=== PATIENT | male | born 1950 | race Caucasian/White ===

== ENCOUNTER 2017-02-22 07:10 | Emergency (ER) | payer MEDICARE, BC ==
[2017-02-22] MEDS ORDERED: Ondansetron ODT TAB* 4 MG PO ONE (07:25)
--- NOTE | 2017-02-22 08:19 | UC ---
Abdominal Pain Male HPI - HPI Summary HPI Summary: onset yesterday morning at 4 am of diarrhea stools, associated with abdominal discomfort and dry heaves. Had diarrhea stools off and on through the day--non-bloody, no mucous, but was up and around. Last night had onset of chills and whole body ache, with upper abdominal discomfort. Has voided with most stool passage, with about 12 episodes of loose water stools in the past 24 hours. Colonoscopy last year was normal. Hx of reflux x years, currently takes PPI irregularly. 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 - here with his Onset/Duration: Sudden Onset, Lasting Hours - 24 - Allergies/Home Medications Allergies/Adverse Reactions: Allergies Allergy/AdvReac Type Severity Reaction Status Date / Time No Known Allergies Allergy Verified 02/22/17 07:15 Home Medications: Home Medications Allopurinol TAB* [Zyloprim 100 MG TAB*] 100 mg PO DAILY 02/22/17 [History Confirmed 02/22/17] Lansoprazole [Prevacid] 30 mg PO DAILY 02/22/17 [History Confirmed 02/22/17] Loratadine 10 mg PO DAILY 02/22/17 [History Confirmed 02/22/17] Potassium Citrate (Alkalinizer [Potassium Citrate] 1 gra XX DAILY 02/22/17 [ History Confirmed 02/22/17] Tamsulosin HCl [Flomax] 0.4 mg PO DAILY 02/22/17 [History Confirmed 02/22/17] PMH/Surg Hx/FS Hx/Imm Hx - Additional Past Medical History Additional PMH: chronic back pain GI/ History: Gastroesophageal Reflux, Other - BPH Other GI/ History: BPH - Surgical History Surgical History: None - Family History Known Family History: Positive: Hypertension - Social History Occupation: Retired Lives: With Family Alcohol Use: Occasionally Substance Use Type: None Smoking Status (MU): Never Smoked Tobacco Review of Systems Constitutional: Fever, Fatigue Skin: Negative Eyes: Negative ENT: Negative Respiratory: Negative Cardiovascular: Negative Gastrointestinal: Negative Genitourinary: Negative Motor: Negative Neurovascular: Negative Musculoskeletal: Other: - chronic episodic back pain, chiropractic treatment regularly. Neurological: Negative Psychological: Negative All Other Systems Reviewed And Are Negative: Yes Physical Exam Triage Information Reviewed: Yes Appearance: Ill-Appearing, Pain Distress - moderate on initial exam, Obese Vital Signs: Initial Vital Signs Temp 100.2 F 02/22/17 07:18 Pulse 101 02/22/17 07:18 Resp 16 02/22/17 07:18 BP 140/85 02/22/17 07:18 Pulse Ox 98 02/22/17 07:18 Eye Exam: Normal Eyes: Positive: Other: - no photophobia, BEULAH ENT: Positive: Pharynx normal, Other: - dry mucous membranes. Neck: Positive: Supple, Nontender, No Lymphadenopathy Respiratory: Positive: Lungs clear, Normal breath sounds Cardiovascular: Positive: RRR, No Murmur Abdomen Description: Positive: Distended - mildly distended, Other: - initially , diffuse tenderness in both upper quadrants without guarding or rebound. Rectal with scant stool, yellow, heme negativel. Negative: CVA Tenderness (R), CVA Tenderness (L) Bowel Sounds: Positive: Present Musculoskeletal Exam: Normal Musculoskeletal: Positive: Strength Intact Neurological Exam: Normal Neurological: Positive: Alert, Muscle Tone Normal Psychological Exam: Normal Skin Exam: Normal, Other - warm and well perfused. Diagnostics - Laboratory Diagnostic Studies Completed/Ordered: heme negative stool Re-Evaluation - Re-Evaluation First Eval Re-Evaluation Time: 10:45 - pain free post, abdomen soft and non-tender, nausea resolved. Change: Improved Abd Pain Male Course/Dx - Course Course Of Treatment: 1 liter of rehydration given here. Discussed differenential--most likely viral illness, but concern raised by fever and pain. Improved with fluids and zofran. Cautioned Mr. Dee and his that if fever persists and pain returns, will need ER evaluation. - Differential Dx/Clinical Impression Differential Diagnosis/HQI/PQRI: Bowel Obstruction, Diverticulitis, Other - colitis Provider Diagnoses: acute diarrrheal illness. moderate dehydration. Discharge - Discharge Plan Condition: Stable Disposition: HOME Prescriptions: Ondansetron [Zofran 4 MG Odt] 4 mg PO Q6H PRN #5 tab PRN Reason: Nausea Patient Education Materials: Infectious Colitis (ED) Additional Instructions: Continue clear fluids until appetite improves. If pain and fever return and persist, I urge evaluation in the emergency. If this is a viral illness, I would anticipate improvement by tomorrow. Resume solid foods gradually.
[2017-02-22] MEDS ORDERED: NS 0.9% 1000 ML* 1,000 ML IV ONE (08:24)
[2017-02-22] MEDS ORDERED: Acetaminophen TAB* 325 MG PO ONE (08:25)
[2017-02-22 09:47] VITALS: BP 134/74
== END 2017-02-22 09:56 | disposition home or self-care (01) ==
LOC: UCCORT 07:10
DX: R19.7 Diarrhea, unspecified (principal); E86.0 Dehydration; G89.29 Other chronic pain; M54.9 Dorsalgia, unspecified; K21.9 Gastro-esophageal reflux disease without esophagitis; N40.0 Benign prostatic hyperplasia without lower urinary tract symptoms; E66.9 Obesity, unspecified
CPT/HCPCS: 82270; 96360; 99202; A9270-GY; G0463